=== PATIENT | male | born 1935 | race Caucasian/White ===

== ENCOUNTER 2017-03-27 14:54 | Inpatient (IN) | payer MEDICARE, MEDICAID ==
[~2017-03-27] VITALS: Ht 167.6 cm; Wt 61.7 kg
[~2017-03-27 14:54] MED LIST: ACET-868 PO; ALLO100T25 PO; AMLO2.5T2 PO; ASCO500T9 PO; BISA10SU8 RC; CHOL400T11 GT; DIVA500T2 PO; DOCU-270 PO; LEVO150T8 PO; MAG30ORA PO; MAGN400O6 PO; MEMA5TAB PO; MULT-659 PO; NA P133E RC; PANT40TA2 PO; PRAV10TA40 PO; SODI75SP NS; TRIA1TAB3 PO
--- NOTE | 2017-03-27 15:00 | NUR ---
pt bibra from snf to er bed 09. per report, cough and congestion progressively getting worst. after lunch was noted to be hypoxic w/ o2 saturation in the 80's. pt arrive on a non rebreather. placed on monitor. tachycardic. afebrile well logging captain. awaiting md botello.
--- NOTE | 2017-03-27 15:14 | NUR ---
dr peters at bedside for eval.
--- NOTE | 2017-03-27 15:26 | NUR ---
radiology at bedside for chest xray.
[2017-03-27] MEDS ORDERED: ALBUTEROL FS 2.5 MG/3 ML VIAL.NEB CONTNEB ONE (15:30)
[2017-03-27] MEDS ORDERED: IV NS 0.9% 500 ML BAG IV ONE (15:30)
[2017-03-27] MEDS ORDERED: IPRATROPIUM NEB FS 0.5 MG/2.5 ML AMPUL.NEB NEB ONE (15:30)
[2017-03-27 15:41] LABS: BASOPHILS # (AUTO) 0.1 /CMM (0.0-0.2); BASOPHILS % (AUTO) 1.4 % (0.0-2.0); EOSINOPHILS # (AUTO) 0.1 /CMM (0.0-0.7); EOSINOPHILS % (AUTO) 1.1 % (0.0-6.0); HEMATOCRIT 51 % (39-51); HEMOGLOBIN 17.1 g/dL (13.5-17.5); LYMPHOCYTES # (AUTO) 1.4 /CMM (0.8-4.8); LYMPHOCYTES % (AUTO) 13.6 % (20.0-44.0); MEAN CORPUSCULAR HEMOGLOBIN 31 PG (26.0-33.0); MEAN CORPUSCULAR HGB CONC 33 g/dl (31.0-36.0); MEAN CORPUSCULAR VOLUME 94 fL (80-96); MONOCYTES # (AUTO) 0.3 /CMM (0.1-1.30); MONOCYTES % (AUTO) 2.6 % (2.0-12.0); NEUTROPHILS # (AUTO) 8.7 /CMM (1.8-8.9); NEUTROPHILS % (AUTO) 81.3 % (43.0-81.0); PLATELET COUNT (AUTO) 277 /CMM (150-450); RDW COEFFICIENT OF VARIATION 13.9 (11.5-15.0); WHITE BLOOD COUNT (AUTO) 10.6 K/uL (4.3-11.0)
[2017-03-27] MEDS ORDERED: IV SET PRIMARY 1 EA INFUS.SET MC ONE ×2 (15:41→19:55)
[2017-03-27] MEDS ORDERED: IV NS 0.9% 500 ML IV ONE (15:41)
[2017-03-27 15:52] LABS: CALCIUM, SERUM 9.1 mg/dL (8.5-10.1); CARBON DIOXIDE 29 mmol/L (21-32); CHLORIDE 99 mmol/L (98-107); GLUCOSE 130 mg/dL (74-106); POTASSIUM 3.9 mmol/L (3.5-5.1); SODIUM SERUM 137 mmol/L (136-145); UREA NITROGEN, BLOOD 7 mg/dL (7-18)
[2017-03-27 16:00] LABS: TROPONIN I < 0.017 ng/mL (0.00-0.056)
[2017-03-27 16:05] LABS: ALANINE AMINOTRANSFERASE 9 U/L (12-78); ALBUMIN 3.1 g/dL (3.4-5.0); ALKALINE PHOSPHATASE 68 U/L (46-116); ASPARTATE AMINOTRANSFERASE 24 U/L (15-37); B-TYPE NATRIURETIC PEPTIDE 390 PG/ML (0-125); BILIRUBIN,DIRECT 0.1 mg/dL (0.0-0.2); BILIRUBIN,TOTAL 0.4 mg/dL (0.2-1.0); TOTAL PROTEIN, SERUM 8.4 g/dL (6.4-8.2)
[2017-03-27 16:05] LABS: ABG OXYGEN SATURATION 97.6 % (92.0-98.5); ABG PCO2 27.1 mmHg (35.0-45.0); ABG PH 7.513 (7.350-7.450); ABG PO2 106.5 mmHg (75.0-100.0); AaDO2 579.4 mmHg; MetHb 0.5 % (0.0-1.5); O2Hb 97.1 % (94.0-97.0); SITE, ABG Right Radial
[2017-03-27] MEDS ORDERED: ALBUTEROL FS 2.5 MG/3 ML VIAL.NEB ONE (16:06)
[2017-03-27] MEDS ORDERED: IPRATROPIUM NEB FS 0.5 MG/2.5 ML AMPUL.NEB ONE (16:06)
--- NOTE | 2017-03-27 16:30 | NUR ---
CALLED OFFICE OF DR KIM. CALLS BEING REFERRED TO [facility].
--- NOTE | 2017-03-27 16:44 | NUR ---
FAMILY LT CONTACT # [phone]
[2017-03-27] MEDS ORDERED: CHOL200026 PO (17:12)
[2017-03-27] MEDS ORDERED: ATOR10TA PO (17:12)
[2017-03-27] MEDS ORDERED: IV NS 0.9% 250 ML IV ONE (17:26)
[2017-03-27] MEDS ORDERED: IOHEXOL-350 100 ML VIAL IV ONE (17:26)
[2017-03-27] MEDS ORDERED: CT SWABBABLE VALVE TRANS SET 1 EA INFUS.SET MC ONE (17:26)
[2017-03-27] MEDS ORDERED: IV NS 0.9% 1,000 ML BAG IV ONE ×3 (17:30→20:00)
[2017-03-27] MEDS ORDERED: CEFTRIAXONE 1GM BAG (ER ONLY) 1 GM/50 ML PIGGYBACK IV ONE (17:30)
[2017-03-27] MEDS ORDERED: CEFTRIAXONE 1GM BAG (ER ONLY) 50 ML IV ONE (17:33)
[2017-03-27] MEDS ORDERED: IV NS 0.9% 1,000 ML ONE ×2 (17:34→19:55)
[2017-03-27] MEDS ORDERED: IV SET PRIMARY PUMP SET 1 EA INFUS.SET MC ONE ×2 (17:34→20:44)
--- NOTE | 2017-03-27 17:51 | NUR ---
PT TO RADIOLOGY FOR CT PULMONARY ANGIO VIA [facility].
--- NOTE | 2017-03-27 18:22 | NUR ---
PT PLACED ON 4L/MIN VIA NC. SATTING AT 95%. ERMD AWARE. WILL MONITOR CLOSELY.
--- NOTE | 2017-03-27 18:45 | NUR ---
U/S TECH AT BEDSIDE FOR BLE DUPLEX ULTRASOUND.
[2017-03-27] MEDS ORDERED: VANCOMYCIN 1 GM in IV D5W 250 ML IV ONE (19:00)
[2017-03-27] MEDS ORDERED: ACETAMINOPHEN 325 MG TABLET PO PRN ×2 (19:00)
[2017-03-27] MEDS ORDERED: MAG HYDROX/AL HYDROX/SIMETH 30 ML UDC PO PRN (19:00)
[2017-03-27] MEDS ORDERED: MAGNESIUM HYDROXIDE 30 ML UDC PO PRN (19:00)
[2017-03-27] MEDS ORDERED: ENOXAPARIN SODIUM 40 MG/0.4 ML DISP.SYRIN SQ ONE ×2 (19:00→20:39)
[2017-03-27] MEDS ORDERED: NA PHOS,M-B/NA PHOS,DI-BA 1 EA ENEMA RC PRN (19:00)
[2017-03-27] MEDS ORDERED: MORPHINE SULFATE INJ 2 MG/ML DISP.SYRIN IV PRN (19:00)
[2017-03-27] MEDS ORDERED: ONDANSETRON HCL/PF 4 MG/2 ML VIAL IVP PRN (19:00)
--- NOTE | 2017-03-27 19:53 | NUR ---
ASSIGNED 304-2
[2017-03-27] MEDS ORDERED: ACETAMINOPHEN 650 MG/SUPP.RECT RC ONE ×2 (19:55→20:00)
--- NOTE | 2017-03-27 20:11 | NUR ---
REPORT GIVEN. TRANSFERING TO FLOOR.
[2017-03-27] MEDS ORDERED: VANCOMYCIN 1 GM VIAL ONE (20:40)
[2017-03-27] MEDS ORDERED: IV D5W 0 ML IV ONE (20:40)
[2017-03-27] MEDS ORDERED: SECONDARY IV SET 1 EA INFUS.SET MC ONE (20:44)
[2017-03-27] MEDS ORDERED: IV D5W 250 ML IV ONE (20:53)
[2017-03-27 21:00] VITALS: BP 73/47
--- NOTE | 2017-03-27 21:00 | NUR ---
RPG PROGRAMMER NOTE PATIENT RECEIVED AWAKE VIA [facility] FROM ER. PT. IS NON-VERBAL. CONTRACTED TO BLE. NO S/S OF PAIN OR DISCOMFORT. NO SOB NOTED. ON 4L VIA NASAL CANNULA. O2 SAT 96%. BP LOW AT 76/48. MD AWARE. CONTINUING BOLUS ORDERED. IV SITE TO RFA INTACT AND PATENT, WITH NO REDNESS OR INFILTRATION NOTED. BED LOCKED AND IN LOWEST POSITION. SIDE RAILS UP. CALL LIGHT WITH IN REACH. WILL CONTINUE TO MONITOR.
[2017-03-27 21:30] VITALS: BP 73/47
[2017-03-27] MEDS ORDERED: ATORVASTATIN 10 MG TABLET PO SCH (22:00)
[2017-03-27] MEDS ORDERED: IV NS 0.9% 1,000 ML IV PRN (23:30)
[2017-03-28] VITALS (87 sets, daily range): BP systolic 62–159; BP diastolic 35–103
--- NOTE | 2017-03-28 00:20 | NUR ---
MATERIAL PLANNING ANALYST NOTE PATIENT TELE SR 82. BP 49/29. ELADIO SWANN NOTIFIED. NEW ORDERS FOR TRANSFER TO ICU AND TO INSERT JUAREZ. ORDERS NOTED.
--- NOTE | 2017-03-28 00:35 | NUR ---
RIGGING SUPERVISOR NOTE UNABLE TO INSERT JUAREZ CATHETER AT THIS. RESISTANCE PRESENT WITH SMALL AMOUNT OF BLOOD. WILL ENDORSE TO ICU.
--- NOTE | 2017-03-28 00:50 | NUR ---
HIGH COURT JUSTICE NOTE REPORT GIVEN TO ED, RN. WILL TRANSFER PT. TO ICU PER MD WITH SAME ORDERS.
--- NOTE | 2017-03-28 00:55 | NUR ---
COMMERCIAL REAL ESTATE UNDERWRITER NOTE NOTFIED THAT PATIENT IS TRANSFERRED TO ICU ROOM 255.
[2017-03-28] MEDS ORDERED: IV D5W 50 ML IV ONE ×2 (01:09→05:16)
[2017-03-28] MEDS ORDERED: PIPERACILLIN /TAZOBACTAM 3.375 G VIAL IV ONE ×2 (01:09→05:16)
[2017-03-28] MEDS ORDERED: SECONDARY IV SET 1 EA INFUS.SET MC ONE ×2 (01:12→08:19)
[2017-03-28] MEDS ORDERED: IV SET PRIMARY PUMP SET 1 EA INFUS.SET MC ONE (01:20)
[2017-03-28] MEDS ORDERED: NOREPINEPHRINE 4 MG/4 ML AMPUL IV ONE ×2 (01:20)
[2017-03-28] MEDS ORDERED: IV D5W 500 ML IV ONE (01:20)
[2017-03-28] MEDS: PIPERACILLIN /TAZOBACTAM 3.375 G in IV D5W 50 ML IV SCH ×4 (01:22→17:13)
[2017-03-28] MEDS: NOREPINEPHRINE 16 MG in IV D5W 500 ML IV PRN ×2 (01:31→12:31)
[2017-03-28] MEDS ORDERED: IV NS 0.9% 1,000 ML ONE (01:34)
[2017-03-28 05:09] LABS: BASOPHILS % (AUTO) 0.2 % (0.0-2.0); EOSINOPHILS # (AUTO) 0.1 /CMM (0.0-0.7); EOSINOPHILS % (AUTO) 0.3 % (0.0-6.0); HEMATOCRIT 41 % (39-51); HEMOGLOBIN 13.7 g/dL (13.5-17.5); LYMPHOCYTES # (AUTO) 1.9 /CMM (0.8-4.8); LYMPHOCYTES % (AUTO) 8.2 % (20.0-44.0); MEAN CORPUSCULAR HEMOGLOBIN 31 PG (26.0-33.0); MEAN CORPUSCULAR HGB CONC 33 g/dl (31.0-36.0); MEAN CORPUSCULAR VOLUME 94 fL (80-96); MONOCYTES # (AUTO) 1.6 /CMM (0.1-1.30); NEUTROPHILS # (AUTO) 19.5 /CMM (1.8-8.9); NEUTROPHILS % (AUTO) 84.3 % (43.0-81.0); PLATELET COUNT (AUTO) 235 /CMM (150-450); RDW COEFFICIENT OF VARIATION 14.6 (11.5-15.0); WHITE BLOOD COUNT (AUTO) 23.2 K/uL (4.3-11.0)
[2017-03-28 05:22] LABS: INR 1.19 (0.87-1.13); PROTHROMBIN TIME 12.9 SECS (9.5-12.7)
[2017-03-28 05:34] LABS: ALBUMIN 2.1 g/dL (3.4-5.0); BILIRUBIN,TOTAL 0.5 mg/dL (0.2-1.0); CALCIUM, SERUM 7.9 mg/dL (8.5-10.1); POTASSIUM 3.7 mmol/L (3.5-5.1); TOTAL PROTEIN, SERUM 6.2 g/dL (6.4-8.2)
[2017-03-28 05:35] LABS: CREATINE KINASE MB 5.8 ng/mL (0-3.6); TROPONIN I 0.08 ng/mL (0.00-0.056)
[2017-03-28 05:51] LABS: BAND % (MANUAL) 20 % (0.0-5.0); LYMPHOCYTES % (MANUAL) 17 % (16-48); MONOCYTES % (MANUAL) 8 % (0-11.0); NEUTROPHILS % (MANUAL) 55 (42-76)
--- NOTE | 2017-03-28 06:14 | NUR ---
THEOLOGY PROFESSOR PT WAS TRANSFERRED FROM [facility] WITH DIAGNOSIS SEPSIS, HYPOTENSION. PT IS CONFUSED DISORIENTED, NONVERBAL, DOES NOT FOLLOW ANY COMMANDS. OPENS EYES TO VOICE & TOUCH. ALL EXTREMITIES ARE CONTRACTED. SCOPE- SR. SBP 70'S. STARTED LEVOPHED DRIP, TITRATED TO KEEP SBP >90. MAIN IV NS @ 75 MLS/HR. INSERTED SECOND IV ACCESS ON LEFT FOREARM. NO SKIN BREAKAGE. PT IS INCONTINENT IN DIAPERS. PT IS SUPPOSED TO HAVE LOADING UNIT OPERATOR CONSULTATION & 2 D ECHO IN A.M. WILL FOLLOW CLOSE MONITORING. WILL CONTINUE CLOSE MONITORING.
--- NOTE | 2017-03-28 06:52 | NUR ---
RETAIL MANAGEMENT TRAINEE PT IS DESATURATED, PLACED ON 02 15 L VIA NRBM. STAT ABG ORDERED. BILATERAL RHONCHI, NONPRODUCTIVE COUTH. REPOSITIONED Q 2 HOURS.
--- NOTE | 2017-03-28 07:15 | NUR ---
PHOTO COLORER NOTES RECEIVED PATIENT AWAKE , NON VERBAL , DOESN'T FOLLOWS COMMANDS , NOT IN ACUTE DISTRESS , RESPIRATIONS EVEN AND UNLABORED WITH SPO2 OF 98% VIA RA S/P DEEP SUCTIONING BY RT NOTED WITH THICK YELLOWISH / BLOOD TINGED SPUTUM , SR 75 WITH OCCASIONAL PAC'S ON BEDSIDE MONITOR , IV OF L FA # 20 AND L FA # 20 PATENT AND INTACT WITH LEVOPHED @ 10MCG/MIN AND NS @ 75ML/HR INFUSING WELL , ALL NEEDS ATTENDED , BED ON LOW AND LOCKED POSITION ,SIDE RAILS X2 , HOB @ 35 , WILL CONTINUE TO MONITOR
[2017-03-28] MEDS ORDERED: LEVOTHYROXINE SODIUM 150 MCG TABLET PO SCH (07:30)
[2017-03-28] MEDS ORDERED: FEE PK DOSING 1 MIN EA MC ONE (08:07)
[2017-03-28 08:14] LABS: THYROID STIMULATING HORMONE 2.67 uIU/mL (0.358-3.74)
[2017-03-28] MEDS: MEMANTINE HCL 5 MG TABLET PO SCH (08:21)
[2017-03-28] MEDS: PANTOPRAZOLE 40 MG TABLET.DR PO SCH (08:21)
[2017-03-28] MEDS: IV NS 0.9% 1,000 ML IV SCH ×2 (08:21→12:20)
[2017-03-28] MEDS: DIVALPROEX SODIUM 500 MG TABLET.DR PO SCH ×2 (08:21→16:10)
[2017-03-28] MEDS: CHOLECALCIFEROL 1,000 UNIT TABLET (VIT D3) PO SCH (08:22)
[2017-03-28] MEDS ORDERED: AMLODIPINE BESYLATE 2.5 MG TABLET PO SCH (09:00)
[2017-03-28] MEDS ORDERED: PANTOPRAZOLE 40 MG VIAL IV SCH (09:00)
[2017-03-28] MEDS ORDERED: Medication Not On Formulary EA (Triamterene/Hydrochlorothiazid (Triamterene-Hctz 37.5-25 PO SCH (09:00)
[2017-03-28] MEDS: VANCOMYCIN 0.75 GM in IV D5W 250 ML IV SCH ×2 (10:15→20:42)
[2017-03-28] MEDS: SALINE NASAL SPRAY 0.65% 1 BOTTLE BOTTLE NS SCH ×3 (10:15→16:10)
--- NOTE | 2017-03-28 10:45 | NUR ---
REGISTERED MIDWIFE NOTES DR GALLO AT BEDSIDE , DISCUSSED LABS , CHEST XRAY ,RESULT , NOT IN ACUTE DISTRESS , CURRENTLY ON RA SPO2 OF 98% , DEEP SUCTIONED THIS AM NOTED WITH THICK SECRETIONS , NPO STATUS , EF OF 70% , ON LEVOPHED @ 4MCG/MIN WITH SBP OF 90-100'S MD ORDERED IVF OF NS @ 250ML/HR X2 DOSES , MD AWARE .
--- NOTE | 2017-03-28 13:00 | NUR ---
CORRUGATED BOX MACHINE OPERATOR NOTES PT ABLE TO SWALLOW MEDICATIONS WITH APPLE WITH NO SIGNS OF ASPIRATIONS , HOB @ 35
[2017-03-28] MEDS ORDERED: Z GUARD REMEDY 4 OZ OINT TP PRN (14:30)
--- NOTE | 2017-03-28 14:58 | NUR ---
DELIVERY CREW WORKER NOTES URINE SAMPLE OBTAINED VIA STRAIGHT CATHETER ORDERED BY DR GALLO , NOTED WITH CLEAR YELLOW URINE 30 ML IN AMOUNT , SPECIMEN LABELED AND SENT TO LAB .
[2017-03-28 15:19] LABS: APPEARANCE,URINE SL CLOUDY (CLEAR); BILIRUBIN,URINE NEGATIVE (NEGATIVE); BLOOD, URINE 2+ Ery/uL (NEGATIVE); COLOR,URINE YELLOW (YELLOW); KETONES,URINE NEGATIVE (NEGATIVE); LEUKOCYTE ESTERASE ,URINE NEGATIVE (NEGATIVE); NITRITE, URINE NEGATIVE (NEGATIVE); PROTEIN,URINE NEGATIVE (NEGATIVE); UGLUCOSE NEGATIVE (NEGATIVE); UROBILINOGEN,URINE 0.2 EU/dL (0.2)
[2017-03-28 15:42] LABS: BACTERIA,URINE None seen /HPF (None Seen); RBC,URINE 21-50 /HPF (0-2); SQUAMOUS EPITHELIAL CELL,UR Rare /HPF (None Seen); WBC,URINE 0-2 /HPF (0-3)
--- NOTE | 2017-03-28 16:00 | NUR ---
DISTRICT PLANT SUPERVISOR NOTES PT NOTED WITH NON PRODUCTIVE COUGH , SPOKE WITH DR GALLO , ASK IF HE WANTS TO ORDER ROBITUSSIN FOR DRY COUGH , PER MD START PT ON ROBITUSSIN 5ML Q4 PRN , ORDER CARRIED OUT
[2017-03-28] MEDS ORDERED: IV NS 0.9% 250 ML IV ONE ×2 (16:20→20:35)
[2017-03-28] MEDS ORDERED: GUAIFENESIN/D-METHORPHAN HB 5 ML UDC PO PRN (16:30)
--- NOTE | 2017-03-28 20:00 | NUR ---
RN NOTES INITIAL ASSESSMENT DONE; PX RECEIVED ASLEEP EASILY AROUSABLE NON PERCEPTIBLE VERBAL OUTPUT, NOT FOLLOWING COMMANDS BUT WITH EYE REGARD; ON ROOM AIR; WITH IV ACCESS ALL LINES FLUSHED WITH SALINE PATENT INTACT; WITH DIAPER ON; CONTRACTED ON LEFT UA, BOTH LOWER EXTREMITIES WHICH ARE ABNORMALLY FLEXED AND IMPOSSIBLE TO PUT DVT PUMPS ON; WITH BOTH HEELS OFFLOADED VIA FOAM; REPOSITIONED; NOTED DIAPER SOAKED OF URINE, PERICARE RENDERED, CHANGED TO A NEW DIAPER, PLACED CONDOM CATH CONNECTED TO URINE BAG BY GRAVITY; REPOSITIONED WITH HOB AT 30 ANGLE; WITH LEVOPHED DRIP RUNNING ON LEFT UA MIDLINE NO S/SX INFILTRATION; SR ON MONITOR WITH PAC'S.
[2017-03-29] VITALS (95 sets, daily range): BP systolic 74–147; BP diastolic 25–107
--- NOTE | 2017-03-29 01:00 | NUR ---
RN NOTES CONDITION AND NEURO STATUS UNCHANGED; SUCTIONED ORALLY; REPOSITIONED; CONTINUED LEVOPHED TITRATION; SR ON MONITOR WITH OCC. PAC'S.
[2017-03-29 04:51] LABS: BASOPHILS % (AUTO) 0.2 % (0.0-2.0); EOSINOPHILS # (AUTO) 0.3 /CMM (0.0-0.7); EOSINOPHILS % (AUTO) 1.7 % (0.0-6.0); HEMATOCRIT 39 % (39-51); HEMOGLOBIN 12.8 g/dL (13.5-17.5); LYMPHOCYTES # (AUTO) 1.6 /CMM (0.8-4.8); LYMPHOCYTES % (AUTO) 9.3 % (20.0-44.0); MEAN CORPUSCULAR HEMOGLOBIN 31 PG (26.0-33.0); MEAN CORPUSCULAR HGB CONC 33 g/dl (31.0-36.0); MEAN CORPUSCULAR VOLUME 94 fL (80-96); MONOCYTES # (AUTO) 0.6 /CMM (0.1-1.30); MONOCYTES % (AUTO) 3.6 % (2.0-12.0); NEUTROPHILS # (AUTO) 14.3 /CMM (1.8-8.9); NEUTROPHILS % (AUTO) 85.2 % (43.0-81.0); PLATELET COUNT (AUTO) 230 /CMM (150-450); RDW COEFFICIENT OF VARIATION 14.7 (11.5-15.0); RED BLOOD CELL COUNT(AUTO) 4.12 MIL/uL (4.5-6.0); WHITE BLOOD COUNT (AUTO) 16.8 K/uL (4.3-11.0)
[2017-03-29 04:56] LABS: CREATININE 0.8 mg/dL (0.6-1.3); POTASSIUM 2.9 mmol/L (3.5-5.1)
[2017-03-29] MEDS: PIPERACILLIN /TAZOBACTAM 3.375 G in IV D5W 50 ML IV SCH ×5 (05:23→17:00)
[2017-03-29 05:38] LABS: BAND % (MANUAL) 5 % (0.0-5.0); EOSINOPHILS % (MANUAL) 1 % (0-4); LYMPHOCYTES % (MANUAL) 6 % (16-48); MONOCYTES % (MANUAL) 6 % (0-11.0); NEUTROPHILS % (MANUAL) 82 (42-76)
--- NOTE | 2017-03-29 06:19 | NUR ---
RN NOTES BEDBATH GIVEN, CHANGED GOWN, BED LINENS AND DIAPER, NO BM, PERICARE RENDERED, NO SKIN BREAKDOWN; CONDOM CATH REMAINED INTACT AND DRAINING URINE; IV ACCESS (MIDLINE AND PIV) FLUSHED PATENT AND INTACT; REPOSITIONED PX; PX ABLE TO COUGH UP SMALL AMT OF SPUTUM ASSISTED BY ORAL SUCTIONING; O2 SAT DECREASED TO 92%, PLACED ON NC AT 2 LPM FOR O2 SUPPORT; CONTINUED LEVOPHED DRIP TITRATION.
[2017-03-29] MEDS ORDERED: POTASSIUM CHLORIDE 10 MEQ/50 ML PREMIXED IVPB FOR PERIPHERAL LINE IV ONE ×2 (06:30→07:00)
[2017-03-29] MEDS ORDERED: IV SET PRIMARY PUMP SET 1 EA INFUS.SET MC ONE (06:32)
--- NOTE | 2017-03-29 07:09 | NUR ---
RN NOTES K-2.9, INFORMED ELADIO SWANN NP, ORDERED 60 MEQ KCL, ORDER CARRIED OUT, KCL RUNNING ON MIDLINE; REPORT GIVEN TO DAISY PAYTON RN FOR CONTINUITY OF CARE.
--- NOTE | 2017-03-29 07:11 | NUR ---
REFINING STILL OPERATOR NOTES RECEIVED PATIENT AWAKE , NOTED WITH TRACKING , NON VERBAL , DOESN'T FOLLOWS COMMANDS , NOT IN ACUTE DISTRESS , RESPIRATIONS EVEN AND UNLABORED WITH SPO2 OF 98% VIA 2LPM NC , SR 78 ON BEDSIDE MONITOR , CONDOM CATHETER IN PLACE DRAINING VIA GRAVITY WITH CLEAR YELLOW URINE , , IV OF L FA # 20 AND L FA # 20 PATENT AND INTACT AND SANCHO MIDLINE # 18 WITH LEVOPHED @ 3MCG/MIN AND NS @ TKO AND KCL @ 50ML/HR INFUSING WELL , ALL NEEDS ATTENDED , BED ON LOW AND LOCKED POSITION ,SIDE RAILS X2 , HOB @ 35 , WILL CONTINUE TO MONITOR.
[2017-03-29] MEDS: IV NS 0.9% 1,000 ML IV SCH ×2 (08:05→16:41)
--- NOTE | 2017-03-29 08:05 | NUR ---
AWNING FINISHER NOTES SPOKE WITH DR RODRIGUEZ ,NOTIFIED PT STILL ON LOW DOSE LEVOPHED @ .MCG/MIN , WITH SBP OF 90'S TRIED TO STOP THE LEVOPHED BUT BP WENT DOWN TO 70'S , ELADIO SWANN ORDERED 60 MEQ KCL IV , BUT VACUUM CLEANER REPAIRER RN ORDERED 10 MEQ KCL IV , PER MD ADD 90 MEQ POTASSIUM IV , OR PO , ORDERS CARRIED OUT
[2017-03-29] MEDS: MEMANTINE HCL 5 MG TABLET PO SCH (08:09)
[2017-03-29] MEDS: DIVALPROEX SODIUM 500 MG TABLET.DR PO SCH ×2 (08:09→16:39)
[2017-03-29] MEDS: CHOLECALCIFEROL 1,000 UNIT TABLET (VIT D3) PO SCH (08:09)
[2017-03-29] MEDS: SALINE NASAL SPRAY 0.65% 1 BOTTLE BOTTLE NS SCH ×2 (08:09→16:39)
[2017-03-29] MEDS: LEVOTHYROXINE SODIUM 75 MCG TABLET PO SCH (08:09)
[2017-03-29] MEDS: PANTOPRAZOLE 40 MG TABLET.DR PO SCH (08:09)
[2017-03-29] MEDS: VANCOMYCIN 0.75 GM in IV D5W 250 ML IV SCH ×2 (09:13→21:02)
[2017-03-29] MEDS: POTASSIUM CHLORIDE 20 MEQ TAB.PRT.SR PO SCH ×2 (09:13→10:17)
[2017-03-29] MEDS: NOREPINEPHRINE 16 MG in IV D5W 500 ML IV PRN ×2 (09:30→18:57)
--- NOTE | 2017-03-29 10:19 | NUR ---
INFORMATION TECHNOLOGY PROFESSOR NOTES SPEECH THERAPIST AT BEDSIDE FOR SWALLOW EVALUATION , ORDERED PUREE WITH HONEY THICK LIQUIDS , SWALLOW SAFETY PRECAUTIONS REVIEWED AND PLACED AT PT ROOM ,
--- NOTE | 2017-03-29 10:55 | NUR ---
HARD ROCK MINER NOTES DR KIM AT BEDSIDE , NOTIFIED PT WAS ADMITTED DUE TO SEPSIS AND PNA WITH LOW BP , STILL OB 4 MCG/MIN LEVOPHED WITH SBP OF 100'S , PASSED SWALLOW EVAL WITH PUREE HONEY THICK , DISCUSSED LABS AND CHEST XRAY RESULT , PENDING PULMO CONSULT FOR PNA ,
[2017-03-29] MEDS ORDERED: POTASSIUM CHLORIDE 10 MEQ TABLET.SA PO ONE (11:00)
--- NOTE | 2017-03-29 15:00 | NUR ---
COUNTER HAND NOTES KCI MATTRESS PLACED ,
--- NOTE | 2017-03-29 16:01 | NUR ---
STOPPING BUILDER NOTES DR MAXWELL AT BEDSIDE , DISCUSSED LABS , CHEST XRAY , AND PT CHIEF COMPLAINT UPON ADMISSION , NOT IN ACUTE DISTRESS, SPO2 OF 100% VIA RA , NOTED WITH PRODUCTIVE COUGH WITH YELLOWISH THICK MUCUS , RHONCHI UPON AUSCULTATION , DIURESIS WELL VIA CONDOM CATHETER , AFEBRILE , ON LEVOPHED @ 2MCG/MIN TO KEEP SBP ABOVE 90 , PT HAS NO DVT PROPHYLAXIS , DVT PUMPS UNABLE TO PLACE DUE TO BILATERAL LOWER EXTREMITIES CONTRACTURES , MD AWARE
--- NOTE | 2017-03-29 16:30 | NUR ---
STREET CAR MECHANIC NOTES CECILIAA GENERAL PEDIATRICIAN AT BEDSIDE , DISCUSSED LABS , AFEBRILE , NO DIARRHEA , ON LEVOPHED @ 2MCG/MIN TO KEEP SBP ABOVE 90 , GENERAL PEDIATRICIAN AWARE
[2017-03-29] MEDS ORDERED: SECONDARY IV SET 1 EA INFUS.SET MC ONE (16:39)
[2017-03-29] MEDS: ENOXAPARIN SODIUM 40 MG/0.4 ML DISP.SYRIN SQ SCH (16:40)
[2017-03-29] MEDS: IPRATROPIUM NEB FS 0.5 MG/2.5 ML AMPUL.NEB NEB SCH ×2 (16:51→19:36)
[2017-03-29] MEDS: ALBUTEROL HALF STRENGTH 1.25 MG/3 ML VIAL.NEB NEB SCH ×2 (16:51→19:36)
--- NOTE | 2017-03-29 19:35 | NUR ---
Received patient awake non verbal follows simple commands.No acute distress noted.Afebrile.Respiration even and unlabored. Bilateral rhonchi on auscultation.Cough at times non productively.RT at bedside giving Nebulizer treatment .Saturation 97%-100%on room air.SB 59/SR 60's.Patient on Levophed drip at 2 mcg and will titrate accordingly to keep SBP>90 infusing and IVF NS @ 125 ml/hr x 2 liters.Both IV's infusing to SANCHO Midline and no signs of infiltration noted.Patient with condom cath draining clear yellow urine.Turned and repositioned to comfort. KCI mattress on.Continue monitoring.
[2017-03-30] VITALS (48 sets, daily range): BP systolic 82–137; BP diastolic 47–82
--- NOTE | 2017-03-30 | NUR ---
Patient resting in no distress.Incontinent of stools.Perineal care done.Bed bath rendered. Complete linens changed.Turned and repositioned.VS stable.
[2017-03-30] MEDS: PIPERACILLIN /TAZOBACTAM 3.375 G in IV D5W 50 ML IV SCH ×5 (00:01→23:56)
[2017-03-30] MEDS: ALBUTEROL HALF STRENGTH 1.25 MG/3 ML VIAL.NEB NEB SCH ×4 (01:08→20:05)
[2017-03-30] MEDS: IPRATROPIUM NEB FS 0.5 MG/2.5 ML AMPUL.NEB NEB SCH ×4 (01:08→20:05)
--- NOTE | 2017-03-30 04:00 | NUR ---
Patient resting.VS stable.No distress noted.Repositioned.
[2017-03-30 05:31] LABS: BASOPHILS # (AUTO) 0.1 /CMM (0.0-0.2); BASOPHILS % (AUTO) 0.6 % (0.0-2.0); EOSINOPHILS # (AUTO) 0.5 /CMM (0.0-0.7); EOSINOPHILS % (AUTO) 4.3 % (0.0-6.0); HEMATOCRIT 40 % (39-51); HEMOGLOBIN 13.4 g/dL (13.5-17.5); LYMPHOCYTES # (AUTO) 2.1 /CMM (0.8-4.8); LYMPHOCYTES % (AUTO) 18.3 % (20.0-44.0); MEAN CORPUSCULAR HEMOGLOBIN 31 PG (26.0-33.0); MEAN CORPUSCULAR HGB CONC 33 g/dl (31.0-36.0); MEAN CORPUSCULAR VOLUME 94 fL (80-96); MONOCYTES # (AUTO) 0.4 /CMM (0.1-1.30); MONOCYTES % (AUTO) 3.4 % (2.0-12.0); NEUTROPHILS # (AUTO) 8.3 /CMM (1.8-8.9); NEUTROPHILS % (AUTO) 73.4 % (43.0-81.0); PLATELET COUNT (AUTO) 205 /CMM (150-450); RDW COEFFICIENT OF VARIATION 14.6 (11.5-15.0); RED BLOOD CELL COUNT(AUTO) 4.28 MIL/uL (4.5-6.0); WHITE BLOOD COUNT (AUTO) 11.3 K/uL (4.3-11.0)
[2017-03-30 05:39] LABS: ALANINE AMINOTRANSFERASE 16 U/L (12-78); ALBUMIN 1.9 g/dL (3.4-5.0); ALKALINE PHOSPHATASE 44 U/L (46-116); ASPARTATE AMINOTRANSFERASE 31 U/L (15-37); CALCIUM, SERUM 8.2 mg/dL (8.5-10.1); CREATININE 0.8 mg/dL (0.6-1.3); GLUCOSE 86 mg/dL (74-106); MAGNESIUM 1.7 mg/dL (1.8-2.4); UREA NITROGEN, BLOOD 2 mg/dL (7-18)
[2017-03-30 05:57] LABS: BILIRUBIN,TOTAL 0.3 mg/dL (0.2-1.0); CARBON DIOXIDE 29 mmol/L (21-32); CHLORIDE 108 mmol/L (98-107); POTASSIUM 3.7 mmol/L (3.5-5.1); SODIUM SERUM 141 mmol/L (136-145)
--- NOTE | 2017-03-30 06:00 | NUR ---
Patient resting.VS stable.SR.Hemodynamically stable.Levophed titrated off.Continue monitor BP. All due medications administered.No signs of pain.Turned and repositioned.
--- NOTE | 2017-03-30 07:05 | NUR ---
QUALIFIED CRAFT WORKER ELECTRICIAN- INITIAL NOTE RECEIVED PT AWAKE, NON-VERBAL, TRACKS EYES BUT UNABLE TO FOLLOW COMMANDS. ON ROOM AIR, RESPIRATIONS EVEN AND UNLABORED, NO SOB OR DISTRESS PRESENT, SATURATING AT 99%. BEDSIDE MONITOR REVEALS SINUS RHYTHM, HR= 65. CONDOM CATH DRAINING TO GRAVITY CLEAR, YELLOW URINE. TWO IVS PRESENT: 1) LFA 20G HL AND 2) SANCHO MIDLINE ON TKO. SAFETY MEASURES TAKEN: BED LOCKED AND IN LOW POSITION, SIDE RAILS UP X2, BED ALARM ON AND CALL LIGHT WITHIN REACH, WILL CONTINUE TO MONITOR.
[2017-03-30] MEDS: CHOLECALCIFEROL 1,000 UNIT TABLET (VIT D3) PO SCH (08:13)
[2017-03-30] MEDS: PANTOPRAZOLE 40 MG TABLET.DR PO SCH (08:13)
[2017-03-30] MEDS: LEVOTHYROXINE SODIUM 75 MCG TABLET PO SCH (08:13)
[2017-03-30] MEDS: DIVALPROEX SODIUM 500 MG TABLET.DR PO SCH ×2 (08:13→16:03)
[2017-03-30] MEDS: MEMANTINE HCL 5 MG TABLET PO SCH (08:13)
[2017-03-30] MEDS: SALINE NASAL SPRAY 0.65% 1 BOTTLE BOTTLE NS SCH ×2 (08:14→16:03)
[2017-03-30] MEDS ORDERED: IV NS 0.9% 250 ML IV PRN (08:30)
[2017-03-30] MEDS: VANCOMYCIN 0.75 GM in IV D5W 250 ML IV SCH ×2 (09:16→21:19)
[2017-03-30] MEDS ORDERED: SECONDARY IV SET 1 EA INFUS.SET MC ONE (11:22)
[2017-03-30] MEDS: Magnesium 1GM/D5W 100ML PREMIX 100 ML IV SCH ×2 (12:16→13:20)
--- NOTE | 2017-03-30 13:41 | NUR ---
WOUND CARE CONSULT: PT PRESENTS WITH INCONTINENCE. CONDOM CATH IN USE. PT NOTED TO HAVE VERY CONTRACTED LOWER EXTREMITIES, MAKING OFFLOADING DIFFICULT. PT ON FIRST STEP MATTRESS. PT TO BE TURNED AND REPOSTIONED EVERY 2 HRS PT CONDITION PERMITS, HEELS FLOATED. ALL SKIN PROTECTION RECOMMENDATIONS DISCUSSED WITH NURSING STAFF. WILL SEE PRN. PAYTON IN AGREEMENT WITH PLAN OF CARE. RONNY SCORE IS 12. Addendum: 03/30/17 at 1344 by PATTI CHAPMAN WNDNU Amended: Links added.
[2017-03-30] MEDS: LACTOBACILLUS RHAMNOSUS GG 1 EACH CAP.SPRINK PO SCH (16:03)
--- NOTE | 2017-03-30 16:30 | NUR ---
POWER PLANT SUPERINTENDENT-PT TRANSFERRED TO TELE ROOM 119-2. REPORT GIVEN TO ANAM CHASE. PT IN NO ACUTE DISTRESS, APPEARS COMFORTABLE, VITAL SIGNS STABLE. ALL MEDICATIONS & BELONGINGS SENT WITH PATIENT.
--- NOTE | 2017-03-30 17:30 | NUR ---
WOMEN SPECIALIST NOTES: RECEIVED PT FROM [place]. PT IS AWAKE, NON-VERBAL, NOT IN ANY FORM OF DISTRESS. PT ROOM AIR, SATURATING AT 97%. ON TELEMONITOR, SR W/ HR 77. HAS CONDOM CATH PATENT & INTACT. PT'S LFA 20G AND SANCHO MIDLINE, FLUSHED, PATENT & INTACT W/ NO SIGNS OF INFECTION/ INFILTRATION NOTED. PROVIDED COMFORT & SAFETY MEASURES. BED KEPT LOCKED AND IN LOW POSITION, SIDE RAILS UP X2, BED ALARM ON AND CALL LIGHT WITHIN REACH. ENDORSED TO PM RN FOR LINDA.
--- NOTE | 2017-03-30 20:00 | NUR ---
RN INITIAL NOTE RECEIVED PT IN NO ACUTE DISTRESS IN BED. PT IS AWAKE WITH EYES OPEN, BUT IS NON VERBAL. PT IS ON RA AND TOLERATING WELL WITH O2 SAT @ 98%. PT IS ON TELE WITH SR ON THE MONITOR. PT HAS CONDOM CATH THAT IS CLEAN DRY BUT IS LEAKING AND WILL BE CHANGED OUT FOR NEW CONDOM CATH. PT DOES NOT SHOW ANY S/S OF SOB, DIFFICULTY BREATHING OR PAIN AT THIS TIME. PT HAS LUCHO MIDLINE THAT IS CLEAN DRY INTACT AND PATENT WITH SALINE FLUSH. CALL LIGHT WITHIN REACH AND ALL SAFETY MEASURES ENSURED AND CARRIED OUT. WILL CONTINUE TO MONITOR PT.
[2017-03-30] MEDS: ENOXAPARIN SODIUM 40 MG/0.4 ML DISP.SYRIN SQ SCH (21:20)
[2017-03-31] VITALS: BP 100/69
[2017-03-31] MEDS: IPRATROPIUM NEB FS 0.5 MG/2.5 ML AMPUL.NEB NEB SCH ×4 (01:10→20:18)
[2017-03-31] MEDS: ALBUTEROL HALF STRENGTH 1.25 MG/3 ML VIAL.NEB NEB SCH ×4 (01:10→20:18)
[2017-03-31 04:00] VITALS: BP 140/75
[2017-03-31] MEDS: LEVOTHYROXINE SODIUM 75 MCG TABLET PO SCH (06:38)
[2017-03-31] MEDS: PANTOPRAZOLE 40 MG TABLET.DR PO SCH (06:38)
[2017-03-31] MEDS: PIPERACILLIN /TAZOBACTAM 3.375 G in IV D5W 50 ML IV SCH ×3 (06:39→17:38)
--- NOTE | 2017-03-31 06:51 | NUR ---
RN CLOSING NOTE PT REMAINS IN NO ACUTE DISTRESS IN BED. PT DID NOT HAVE ANY SIGNIFICANT CHANGE IN CONDITION DURING SHIFT. ALL NEEDS MET ALL ORDERS CARRIED OUT. WILL ENDORSE TO AM RN FOR CONTINUITY OF CARE.
--- NOTE | 2017-03-31 07:20 | NUR ---
RN INITIAL NOTES: Rec'd pt awake on bed, HOB elevated, non verbal, not in any distress. Pt on room air, no SOB noted. On telemonitor, SR w/ occ PVCs. Pt has condom cath but not in placed. Has LUCHO midline and LFA G20 SL, both flushed, patent & intact w/ no signs of infection/ infiltration noted. Provided comfort and safety measures. Call light placed w/in reach. Bed kept low & in locked position. Instructed SUPPLY SPECIALIST that when feeding pt HOB should be elevated and to feed slowly and carefully d/t high risk of aspiration. Will continue to monitor.
[2017-03-31 07:24] LABS: CALCIUM, SERUM 8.4 mg/dL (8.5-10.1); CARBON DIOXIDE 28 mmol/L (21-32); CHLORIDE 102 mmol/L (98-107); CREATININE 0.9 mg/dL (0.6-1.3); GLUCOSE 79 mg/dL (74-106); MAGNESIUM 2.2 mg/dL (1.8-2.4); POTASSIUM 3.3 mmol/L (3.5-5.1); SODIUM SERUM 138 mmol/L (136-145); UREA NITROGEN, BLOOD 3 mg/dL (7-18)
[2017-03-31 08:00] VITALS: BP 116/62
[2017-03-31] MEDS: VANCOMYCIN 0.75 GM in IV D5W 250 ML IV SCH ×2 (08:15→21:22)
[2017-03-31] MEDS: CHOLECALCIFEROL 1,000 UNIT TABLET (VIT D3) PO SCH (08:16)
[2017-03-31] MEDS: LACTOBACILLUS RHAMNOSUS GG 1 EACH CAP.SPRINK PO SCH ×2 (08:16→17:38)
[2017-03-31] MEDS: MEMANTINE HCL 5 MG TABLET PO SCH (08:16)
[2017-03-31] MEDS: SALINE NASAL SPRAY 0.65% 1 BOTTLE BOTTLE NS SCH ×2 (08:17→17:38)
[2017-03-31] MEDS: VALPROIC ACID 250 MG/5 ML UDC GT SCH ×2 (09:05→21:24)
[2017-03-31] MEDS ORDERED: POTASSIUM CHLORIDE 20 MEQ POWDER PACKET PO SCH (10:30)
[2017-03-31] MEDS: POTASSIUM CHLORIDE 20 MEQ TAB.PRT.SR PO SCH ×2 (11:25→12:36)
[2017-03-31 12:00] VITALS: BP 89/63
[2017-03-31 16:00] VITALS: BP 108/77
--- NOTE | 2017-03-31 18:59 | NUR ---
RN CLOSING NOTES: No acute changes noted w/in shift. Kept well rested. Needs attended. IV lines kept patent & intact w/ no signs of infection/ infiltration noted. No sighs of aspiration noted. Kept HOB elevated post feeding. Call light placed w/in reached. Turned and repositioned q2h and as needed. Will endorse to PM RN for LINDA.
--- NOTE | 2017-03-31 19:00 | NUR ---
LIFE INSURANCE AGENT NOTES RECEIVED PATIENT IN BED AWAKE, NON VERBAL OBTUNDED. IN STABLE CONDITION NO S/S OF DISTRESS NOTED. IV SITE INTACT W/ NO S/S OF INFILTRATION NOTED. CALL LIGHT WITHIN REACH. BED AT LOW POSITION AND LOCKED FOR SAFETY. WILL CONTINUE TO MONITOR ACCORDINGLY.
[2017-03-31 20:00] VITALS: BP 113/66
[2017-03-31] MEDS: ENOXAPARIN SODIUM 40 MG/0.4 ML DISP.SYRIN SQ SCH (21:33)
[2017-04-01] VITALS: BP 104/71
[2017-04-01] MEDS: PIPERACILLIN /TAZOBACTAM 3.375 G in IV D5W 50 ML IV SCH ×3 (00:13→11:28)
[2017-04-01] MEDS: IPRATROPIUM NEB FS 0.5 MG/2.5 ML AMPUL.NEB NEB SCH ×2 (01:58→07:35)
[2017-04-01] MEDS: ALBUTEROL HALF STRENGTH 1.25 MG/3 ML VIAL.NEB NEB SCH ×2 (01:59→07:35)
[2017-04-01 04:00] VITALS: BP 140/85
--- NOTE | 2017-04-01 06:56 | NUR ---
MACHINE OPERATOR SLITTER TECHNICIAN CLOSING NOTES PATIENT COMFORTABLY IN BED ASLEEP AND EASILY AWAKEN, NON VERBAL / DISORIENTED, NO S/S OF DISTRESS NOTED, RESPIRATIONS EVEN UNLABORED BREATH SOUNDS. APICAL PULSE REGULAR; 02 2LPM VIA NC 02 SAT 97%. ON JAVASCRIPT APPLICATION DEVELOPER SR 71'S. PATIENT IN STABLE CONDITION WITH NO SOB NO NAUSEA AND VOMITING NO HEADACHE NO PAIN, SAFETY ENVIRONMENT PROVIDED. FREE OF CLUTTERS, SAFE HAZARD FREE ENVIRONMENT. NEEDS ATTENDED AND ANTICIPATED, NURSING CARE RENDERED, KEPT CLEAN AND DRY AND COMFORTABLE. ALL DUE MEDS WAS GIVEN. CALL LIGHT IN REACH, BED LOWERED AND LOCKED, SR X2 FOR SAFETY AND WILL ENDORSE CONTINUE PLAN OF CARE.
--- NOTE | 2017-04-01 07:00 | NUR ---
RN NOTES RECEIVED PATIENT ON BED, NON VERBAL , RESPIRATION EVEN AND UNLABORED, ON O2 2L N/C , NO SOB NOTED, R UPPER ARM MID LINE AND LEFT FOREARM IV SITES CDI, CALL LIGHT WITHIN EASY REACH. BED AT LOW POSITION AND LOCKED FOR SAFETY. WILL CONTINUE TO MONITOR PT CLOSELY AND NOTIFY MD FOR ANY SIGNIFICANT CHANGES.
[2017-04-01 07:07] LABS: CALCIUM, SERUM 8.6 mg/dL (8.5-10.1); CARBON DIOXIDE 29 mmol/L (21-32); CHLORIDE 103 mmol/L (98-107); GLUCOSE 75 mg/dL (74-106); POTASSIUM 3.8 mmol/L (3.5-5.1); SODIUM SERUM 140 mmol/L (136-145); UREA NITROGEN, BLOOD 4 mg/dL (7-18)
[2017-04-01 08:00] VITALS: BP 105/63
[2017-04-01] MEDS: LACTOBACILLUS RHAMNOSUS GG 1 EACH CAP.SPRINK PO SCH (08:06)
[2017-04-01] MEDS: VALPROIC ACID 250 MG/5 ML UDC GT SCH (08:06)
[2017-04-01] MEDS: LEVOTHYROXINE SODIUM 75 MCG TABLET PO SCH (08:06)
[2017-04-01] MEDS: PANTOPRAZOLE 40 MG TABLET.DR PO SCH (08:07)
[2017-04-01] MEDS: SALINE NASAL SPRAY 0.65% 1 BOTTLE BOTTLE NS SCH (08:07)
[2017-04-01] MEDS: MEMANTINE HCL 5 MG TABLET PO SCH (08:07)
[2017-04-01] MEDS: CHOLECALCIFEROL 1,000 UNIT TABLET (VIT D3) PO SCH (08:07)
[2017-04-01] MEDS: VANCOMYCIN 0.75 GM in IV D5W 250 ML IV SCH (08:07)
[2017-04-01 12:00] VITALS: BP 106/62
--- NOTE | 2017-04-01 13:00 | NUR ---
RN NOTES REPORT GIVEN TO KITTY CHASE AT [facility] , PT STABLE , NO SKIN ISSUES NOTED, AWAITING FOR AMBULACE TO TAKE PT TO SNF
--- NOTE | 2017-04-01 13:35 | NUR ---
RN NOTES REPORT GIVEN TO EMT PERSONAL , PT STABLE , R ARM MIDLINE AND R FA IV DISCONTINUED, PT LEFT THE FLOOR TO MAIN ENTRANCE ACCOMPANIED BY EMT PERSONAL IN STABLE CONDITION
[2017-04-01] MEDS ORDERED: CEFEPIME 1 GM in IV D5W 50 ML IV SCH ×2 (16:00→21:00)
== END 2017-04-01 13:35 | DRG 871 ==
LOC: ER 14:55 → TELE 19:54 → ICU 03-28 00:35 → TELE1 03-30 16:25 → MEDSG1 04-01 09:52
PROVIDERS: ADMIT Internal Medicine; ATTEND Legal Medicine
PROC: 05H633Z Insertion of Infusion Device into Left Subclavian Vein, Percutaneous Approach (ICD-10-PCS; principal; 2017-03-28)
DX: A41.9 Sepsis, unspecified organism (principal); I21.4 Non-ST elevation (NSTEMI) myocardial infarction; E43 Unspecified severe protein-calorie malnutrition; J96.01 Acute respiratory failure with hypoxia; R53.2 Functional quadriplegia; R65.21 Severe sepsis with septic shock; I50.33 Acute on chronic diastolic (congestive) heart failure; J69.0 Pneumonitis due to inhalation of food and vomit; G93.41 Metabolic encephalopathy; E87.2 Acidosis; N39.0 Urinary tract infection, site not specified; F03.91 Unspecified dementia, unspecified severity, with behavioral disturbance; Z66 Do not resuscitate; G40.909 Epilepsy, unspecified, not intractable, without status epilepticus; D64.9 Anemia, unspecified; E03.9 Hypothyroidism, unspecified; F29 Unspecified psychosis not due to a substance or known physiological condition; M10.9 Gout, unspecified; K21.9 Gastro-esophageal reflux disease without esophagitis; I25.10 Atherosclerotic heart disease of native coronary artery without angina pectoris; F41.9 Anxiety disorder, unspecified; E87.6 Hypokalemia; I11.0 Hypertensive heart disease with heart failure; Z74.01 Bed confinement status; E78.5 Hyperlipidemia, unspecified; E88.09 Other disorders of plasma-protein metabolism, not elsewhere classified; F32.9 Major depressive disorder, single episode, unspecified; R91.8 Other nonspecific abnormal finding of lung field; Z68.22 Body mass index [BMI] 22.0-22.9, adult
CPT/HCPCS: 31720; 36415; 36569; 36600; 71010-TC; 80048-TC; 80053-TC; 80076-TC; 80202-TC; 81000-TC; 82306; 82553-TC; 82803-TC; 83605-TC; 83735-TC; 83880; 84100-TC; 84439-TC; 84443-TC; 84484-TC; 85025-TC; 85610-TC; 85730-TC; 87040-TC; 87070-TC; 87081-TC; 87086-TC; 87186-TC; 92526; 92611-TC; 93307-TC; 93970-TC; 94640-TC; 94762-TC; 94799-TC; A4349; A4606; J0692; J0696; J1650; J2543; J3370; J3475; J7030; J7040; J7050; J7060; Q9967; Z7610